=== PATIENT | female | born 1990 | race Caucasian/White ===

== ENCOUNTER 2018-06-22 20:05 | Emergency (ER) | payer SELFPAY ==
[2018-06-22 20:05] VITALS: BMI 23.2
[2018-06-22 20:26] VITALS: BP 106/70; PULSE 88; RESP 18; O2SAT 100
--- NOTE | 2018-06-22 21:19 | C.PDOC ---
History Of Present Illness 28 year old female presents to the ER with generalized body aches, fever, and cough for the past 3 days. Denies sore throat, sick contact, or recent travel. HPI: Influenza Time Seen by Provider: 06/22/18 20:40 Chief Complaint: Flu-like Symptoms History Per: Patient Exam Limitations: no limitations Have you had recent travel within the past 21 days to any of the following countries: [place], [place], [place] or [place]?: No Onset/Duration Of Symptoms: Days (3) Symptoms include: fever, bodyaches, cough. denies: diarrhea Sick Contacts (Context): None Hx Influenza Vaccination: No Past Medical History Reviewed: Historical Data, Nursing Documentation, Vital Signs Vital Signs: Last Vital Signs Temp 100.5 F H 06/22/18 20:20 Pulse 88 06/22/18 20:20 Resp 18 06/22/18 20:20 BP 106/70 06/22/18 20:20 Pulse Ox 100 06/22/18 20:20 - [facility] Procedures [facility] NEC (05/31/14) MANUAL ASSIST DELIV NEC (05/31/14) Family History: States: No Known Family Hx - Social History Hx Tobacco Use: No Hx Alcohol Use: No Hx Substance Use: No - Immunization History Hx Tetanus Toxoid Vaccination: No Hx Influenza Vaccination: No Hx Pneumococcal Vaccination: No Review Of Systems Constitutional: Positive for: Fever ENT: Negative for: Nose Discharge, Nose Congestion, Throat Pain Respiratory: Positive for: Cough Musculoskeletal: Positive for: Other (Generalized body aches) Skin: Negative for: Rash Physical Exam - Physical Exam Appears: Non-toxic Skin: Normal Color, Warm, Dry Head: Atraumatic, Normacephalic Eye(s): bilateral: Normal Inspection Ear(s): Bilateral: Normal Nose: Normal Oral Mucosa: Moist Throat: Normal, No Erythema, No Exudate Neck: Normal, Supple Chest: Symmetrical, No Tenderness Cardiovascular: Rhythm Regular Respiratory: Normal Breath Sounds, No Rales, No Rhonchi, No Wheezing Neurological/Psych: Oriented x3, Normal Speech - ECG O2 Sat by Pulse Oximetry: 100 (Room air) Pulse Ox Interpretation: Normal - Progress ED Course And Treament: Patient is resting comfortably in no acute distress, vitals are stable, will discharge home with Rx and instructions to follow up with PMD. Disposition Counseled Patient/Family Regarding: Diagnosis, Need For Followup, Rx Given - Disposition Referrals: [facility] [Outside] Disposition: HOME/ ROUTINE Disposition Time: 21:12 Condition: STABLE Additional Instructions: Increase PO fluids Take medications as directed Return to ER if worse Prescriptions: Benzonatate [Tessalon Perles] 200 mg PO TID #14 sgl Cetirizine HCl [Zyrtec] 10 mg PO DAILY #14 capsule Ibuprofen [Motrin] 600 mg PO Q6H #30 tab Instructions: Flu, Adult (DC) Forms: [facility] (Mongolian) Print Language: SETSWANA - Clinical Impression Clinical Impression: Influenza-like illness - PA / F[place]TE / Resident Statement MD/DO has reviewed & agrees with the documentation as recorded. - Scribe Statement The provider has reviewed the documentation as recorded by the Scribshima Huffman All medical record entries made by the Sienaibshima were at my direction and personally dictated by me. I have reviewed the chart and agree that the record accurately reflects my personal performance of the history, physical exam, medical decision making, and the department course for this patient. I have also personally directed, reviewed, and agree with the discharge instructions and disposition.
[2018-06-22 21:28] VITALS: TEMP 100
== END 2018-06-22 21:27 | disposition home or self-care (01) ==
LOC: C.ER 20:05
DX: J11.1 Influenza due to unidentified influenza virus with other respiratory manifestations (principal)